=== PATIENT | male | born 1995 | race Caucasian/White ===

== ENCOUNTER 2018-02-20 12:37 | Emergency (ER) | payer OTHER ==
[2018-02-20 13:02] VITALS: BP 137/83
--- NOTE | 2018-02-20 13:10 | UC ---
UC General HPI - HPI Summary HPI Summary: 5 DAY HX OF SINUS CONGESTION, EAR PAIN, COUGH AND CHEST CONGESTION - History of Current Complaint Chief Complaint: UCGeneralIllness Stated Complaint: STUFFY NOSE/EAR COMPLAINT/COUGH Time Seen by Provider: 02/20/18 13:05 Hx Obtained From: Patient Onset/Duration: Sudden Onset Timing: Constant Pain Intensity: 2 Associated Signs & Symptoms: Negative: Fever - Allergy/Home Medications Allergies/Adverse Reactions: Allergies Allergy/AdvReac Type Severity Reaction Status Date / Time No Known Allergies Allergy Verified 02/20/18 12:57 Home Medications: Home Medications Dm/Acetaminophen/Doxylamine [Night Cold-Flu Relief Liq Gel] 1 each PO Q12HR PRN 02/20/18 [History Confirmed 02/20/18] [email or web address] ER TAB [Mucinex*] 600 mg PO BID 02/20/18 [History Confirmed 02/20/18 ] PMH/Surg Hx/FS Hx/Imm Hx Previously Healthy: Yes - Surgical History Surgical History: Yes Surgery Procedure, Year, and Place: wisdom teeth. ingrown toenails - Family History Known Family History: Positive: Non-Contributory - Social History Lives: With Family Alcohol Use: Occasionally Substance Use Type: None Smoking Status (MU): Never Smoked Tobacco - Immunization History Vaccination Up to Date: Yes Review of Systems All Other Systems Reviewed And Are Negative: Yes Constitutional: Positive: Negative Skin: Positive: Negative Eyes: Positive: Negative ENT: Positive: Ear Ache, Nasal Discharge, Sinus Congestion Respiratory: Positive: Cough Cardiovascular: Positive: Negative Gastrointestinal: Positive: Negative Genitourinary: Positive: Negative Motor: Positive: Negative Neurovascular: Positive: Negative Musculoskeletal: Positive: Negative Neurological: Positive: Negative Psychological: Positive: Negative Physical Exam Triage Information Reviewed: Yes Appearance: Well-Appearing Vital Signs: Initial Vital Signs Temp 97.5 F 02/20/18 12:57 Pulse 74 02/20/18 12:57 Resp 16 02/20/18 12:57 BP 137/83 02/20/18 12:57 Pulse Ox 100 02/20/18 12:57 Vital Signs Reviewed: Yes Eyes: Positive: Conjunctiva Clear ENT: Positive: Pharyngeal erythema, Nasal congestion, TMs normal - R, TM red - L , Uvula midline. Negative: Trismus, Muffled voice, Hoarse voice Neck: Positive: Supple, Nontender, No Lymphadenopathy Respiratory: Positive: Lungs clear, No respiratory distress, Other: - COUGH IS CONGESTED Cardiovascular: Positive: RRR, No Murmur Abdomen Description: Positive: Nontender, No Organomegaly, Soft Bowel Sounds: Positive: Present Musculoskeletal: Positive: ROM Intact Neurological: Positive: Alert Psychological: Positive: Age Appropriate Behavior Skin Exam: Normal Course/Dx - Differential Dx - Multi-Symptom Provider Diagnoses: URI. L OM, BRONCHITIS Discharge - Sign-Out/Discharge Documenting (check all that apply): Patient Departure All imaging exams completed and their final reports reviewed: No Studies - Discharge Plan Condition: Stable Disposition: HOME Prescriptions: Amoxicillin/Clavulanate TAB* [Augmentin TAB 875*] 875 mg PO BID 10 Days #20 tab Patient Education Materials: Ear Infection (ED), Upper Respiratory Infection ( DC), Acute Bronchitis (ED) Referrals: DIANE Staton [Medical Doctor] - Additional Instructions: FOLLOW UP PRIMARY CARE IF NOT BETTER IN 7 DAYS OR SOONER IF WORSE. - Billing Disposition and Condition Condition: STABLE Disposition: Home
== END 2018-02-20 13:17 | disposition home or self-care (01) ==
LOC: UCCORT 12:37
DX: J06.9 Acute upper respiratory infection, unspecified (principal); H66.92 Otitis media, unspecified, left ear; J40 Bronchitis, not specified as acute or chronic
CPT/HCPCS: 99212; G0463